=== PATIENT | female | born 1940 | race Caucasian/White ===

== ENCOUNTER → 2017-10-17 16:34 | Outpatient (CLI) | payer MEDICARE, BC, SELFPAY | PROVIDERS: PCP Family Medicine; Visit Provider Family Medicine | DX: R82.99 Other abnormal findings in urine (principal) | CPT/HCPCS: 87077; 87086; 87186 ==

== ENCOUNTER 2017-10-20 19:06 | Emergency (ER) | payer MEDICARE, BC, SELFPAY ==
[2017-10-20 19:12] VITALS: BP 166/72; PULSE 107; RESP 18; TEMP 36.7; O2SAT 99; BMI 22.1
--- NOTE | 2017-10-20 20:21 | ED.FEMALEGU ---
HPI - Female Genitourinary <Dafne Velásquez PA-C - Last Filed: 10/20/17 22:41> General Chief complaint: Urogenital-Female Stated complaint: LEFT SIDE LOWER PAIN HAD AN UTI Time Seen by Provider: 10/20/17 20:22 Source: patient Mode of arrival: ambulatory Limitations: no limitations History of Present Illness HPI Narrative: This 77 year year old female comes in today due to persistent urinary symptoms and increasing left flank pain. She states that she was started on Macrobid 3 days ago for UTI, however she continues to have urinary urgency and increasing left flank pain. She says the pain has been worsening mostly today. She was having dysuria which is better. She has not had any hematuria. She is not having worsening urinary frequency today. She denies any fever, chills, sweats, nausea or vomiting and has been going about her activities. She denies any new trauma to the trunk or ribs. She denies any anorexia. She denies any chest pain, dyspnea or other new symptoms on systems review Related Data Home Medications Medication Instructions Recorded Confirmed sodium chloride 2 gm PO QDAY #0 05/15/16 VITAMIN D (Vitamin D3) 2,000 u PO Q AM #0 09/03/16 Previous Rx's Medication Instructions Recorded amlodipine [Norvasc] 5 mg PO QDAY #30 tab 06/18/17 irbesartan 300 mg PO QDAY #90 tab 07/29/17 amitriptyline 10 mg PO QPM #30 tab 09/08/17 lorazepam 0.5 mg tablet 0.25 mg PO BID #60 tab 09/29/17 levofloxacin [Levaquin] 500 mg PO DAILY 7 Days tab 10/20/17 Allergies Allergy/AdvReac Type Severity Reaction Status Date / Time No Known Allergies Allergy Uncoded 10/20/17 19:17 Review of Systems <Dafne Velásquez PA-C - Last Filed: 10/20/17 22:41> Review of Systems All systems reviewed & are unremarkable except as noted in HPI and below Exam <Dafne Velásquez PA-C - Last Filed: 10/20/17 22:41> Narrative Exam Narrative: GENERAL APPEARANCE: Patient sitting comfortably, appears well, in no distress. LUNGS: Clear to auscultation bilaterally. HEART: Rate and rhythm regular without murmur, normal S1 and S2, no S3 or S4. ABDOMEN: Soft, ND, +BS x 4 quadrants, no CVAT. She has some mild left CVAT posterior to lateral that is difficult to reproduce. No tenderness elsewhere. No guarding or rebound DERMATOLOGIC: No exanthem Initial Vital Signs Initial Vital Signs: Vital Signs Temperature 98.1 F 10/20/17 19:12 Pulse Rate 107 H 10/20/17 19:12 Respiratory Rate 18 10/20/17 19:12 Blood Pressure 166/72 H 10/20/17 19:12 Pulse Oximetry 99 10/20/17 19:12 <Arron Estrada DO - Last Filed: 10/21/17 02:27> Initial Vital Signs Initial Vital Signs: Vital Signs Temperature 98.1 F 10/20/17 19:12 Pulse Rate 107 H 10/20/17 19:12 Respiratory Rate 18 10/20/17 19:12 Blood Pressure 166/72 H 10/20/17 19:12 Pulse Oximetry 99 10/20/17 19:12 Course <Dafne Velásquez PA-C - Last Filed: 10/20/17 22:41> Hospital Course: This patient appears basically well today. She has a little bit of left leg pain that is difficult to reproduce, in the setting of known urinary infection. She states that this was present a few days ago but very mild, worse today. She has persistent urinary urgency as well. Explained that she did have E coli that was pansensitive however may not treat she does have pyelonephritis. We gave her a dose of Levaquin tonight and she will continue this as an outpatient tomorrow. Advised of need to follow up if any acutely worsening symptoms, and to see PCP for follow-up in a couple of days regardless, and she is agreeable Orders Ordered: ED Orders 10/20/17 19:24 Urine Culture Stat Urine Microscopic Stat Discontinued Medications Levofloxacin (Levaquin) 500 mg PO NOW ONE Stop: 10/20/17 20:44 Last Admin: 10/20/17 20:51 Dose: 500 mg Vital Signs - 8 hr 10/20/17 19:12 10/20/17 21:46 Temperature 98.1 F Pulse Rate 107 H 83 Respiratory Rate 18 18 Blood Pressure 166/72 H 145/81 H Pulse Oximetry 99 98 <Arron Estrada DO - Last Filed: 10/21/17 02:27> Orders Ordered: ED Orders 10/20/17 19:24 Urine Culture Stat Urine Microscopic Stat Discontinued Medications Levofloxacin (Levaquin) 500 mg PO NOW ONE Stop: 10/20/17 20:44 Last Admin: 10/20/17 20:51 Dose: 500 mg Vital Signs - 8 hr 10/20/17 19:12 10/20/17 21:46 Temperature 98.1 F Pulse Rate 107 H 83 Respiratory Rate 18 18 Blood Pressure 166/72 H 145/81 H Pulse Oximetry 99 98 MDM - Female Genitourinary <Dafne Velásquez PA-C - Last Filed: 10/20/17 22:41> Lab Data Attestation: I reviewed the patient's lab results. Lab Results 10/20/17 Range/Units 19:24 Urine RBC None seen (0-5/HPF) Urine WBC 1-5/hpf (0-5/HPF) Urine Bacteria None seen (None) Ur Culture Indicated? Specimen cultured Micro UA Comment Not Reportable <Arron Estrada DO - Last Filed: 10/21/17 02:27> Lab Data Lab Results 10/20/17 Range/Units 19:24 Urine RBC None seen (0-5/HPF) Urine WBC 1-5/hpf (0-5/HPF) Urine Bacteria None seen (None) Ur Culture Indicated? Specimen cultured Micro UA Comment Not Reportable Discharge Plan Departure Patient Disposition: Home, Self-Care Clinical Impression: Infection of kidney Discharge Date/Time: 10/20/17 21:46 Interventions: ED Discharge Assessment Last Done: 10/20/17 21:46 Instructions: DI for Kidney Infection Activity Restrictions/Additional Instructions: You should return to the closest emergency room as we talked about if you have new symptoms such as vomiting, fever, or worsening pain. Given your recent symptoms, it appeared that you may have a kidney infection and may need a different antibiotic than you were 1st prescribed. You should stop the Macrobid (Nitrofurantoin) and take your next dose of the new antibiotic Levaquin or levofloxacin tomorrow evening. You should follow up with your PCP in the next couple of days for recheck. You need further testing if you are not getting better. Prescriptions: New levofloxacin [Levaquin] 500 mg tablet 500 mg PO DAILY 7 Days RF: 0 Discontinued nitrofurantoin macrocrystal [Macrodantin] 100 MG capsule 100 mg PO QID Qty: 20 RF: 0 nitrofurantoin monohyd/m-cryst [Macrobid] 100 MG capsule 100 mg PO BID Qty: 4 RF: 0 nitrofurantoin monohyd/m-cryst [Macrobid] 100 mg capsule 100 mg PO BID Qty: 20 RF: 0 No Action sodium chloride 1 GM tablet 2 gm PO QDAY Qty: 0 RF: 0 VITAMIN D (Vitamin D3) 2,000 u PO Q AM Qty: 0 RF: 0 amlodipine [Norvasc] 5 MG tablet 5 mg PO QDAY Qty: 30 RF: 4 irbesartan 300 MG tablet 300 mg PO QDAY Qty: 90 RF: 1 amitriptyline 10 MG tablet 10 mg PO QPM Qty: 30 RF: 1 lorazepam 0.5 mg tablet 0.25 mg PO BID Qty: 60 RF: 0 Referrals: Temi Antoine MD [Primary Care Provider] - <Arron Estrada DO - Last Filed: 10/21/17 02:27> Cosign ED Attending Cosignature Attestation: I was immediately available in the department for consultation. Documentation has been reviewed. I agree with assessment and plan.
[2017-10-20 20:38] LABS: Bacteria Urine None Seen; RBC Urine None Seen (0-5/HPF); WBC Urine 1-5/HPF (0-5/HPF)
[2017-10-20 20:39] LABS: Culture Indicated Urine Specimen Cultured
[2017-10-20] MEDS: levoFLOXacin 500 MG TABLET PO (20:51)
[2017-10-20 21:46] VITALS: BP 145/81; PULSE 83; RESP 18; O2SAT 98
== END 2017-10-20 21:46 | disposition home or self-care (01) ==
PROVIDERS: Emergency Provider Internal Medicine; PCP Family Medicine
DX: N15.9 Renal tubulo-interstitial disease, unspecified (principal)
CPT/HCPCS: 81003; 81015; 87086; 99282; 99283

== ENCOUNTER → 2017-11-28 11:54 | Outpatient (CLI) | payer MEDICARE, BC, SELFPAY ==
--- NOTE | 2017-11-28 11:58 | DI.CT.S_ITS ---
PROCEDURE: CT CHEST WO CON INDICATIONS: Pulmonary nodule TECHNIQUE: Noncontrast 2.0-2.5 mm thick sections acquired from the pulmonary apices to the posterior costophrenic angles. 7 mm thick coronal and sagittal MIP reformats were then acquired. A low radiation dose technique was utilized. COMPARISON: [facility], CT, THORAX WITH CONTRAST, 07/08/2016, 9:35. [facility], [place], PET NECK TO MID THIGH STD, 04/24/2016, 8:34. [facility], , CT THORAX WITH CONTRAST, 04/10/2016, 16:58. FINDINGS: Image quality: Diagnostic, given the low radiation dose technique. Lungs and pleura: Previously visualized groundglass nodule seen in the left lower lobe has increased in size since 07/08/16 measuring 1.8 cm, previously measuring 1.1 cm. There is ill-defined multinodular appearance which is more conspicuous since the prior study, with increased solid appearing component image 81 series 2. Upper lobe predominant centrilobular emphysema. No acute consolidation or pleural effusion. No pneumothorax. The central airways appear grossly patent. Mediastinum: Heart size is normal. Coronary calcifications are present. No pericardial effusion. No mediastinal adenopathy by size criteria. Thoracic aorta and central pulmonary arteries are normal in size. Esophagus is normal in caliber. No hiatal hernia. Bones and chest wall: No suspicious bony lesions. No vertebral body compression fractures. No axillary or supraclavicular adenopathy by size criteria. Low attenuation nodular focus present in the left lobe of the thyroid measuring 1 cm, image 3 series 3. Recommend followup with dedicated thyroid ultrasound. Abdomen: Nonspecific hypodense lesions seen in the subcapsular left lobe the liver image 55 series 3 which is indeterminate however grossly unchanged. IMPRESSION: Interval increase in the nodular lesion in the left lower lobe since 07/08/16, now with mixed solid and groundglass appearance. Findings are concerning for indolent neoplasm such as adenocarcinoma. Consider percutaneous needle biopsy for further evaluation. Fleischner Society criteria for SOLID lung nodule followup. Nodule size (mm)Low-risk patientHigh-risk patient<6 (single or multiple)No routine followup.Optional CT at 12 months. 6-8 (single or multiple)CT at 6-12 months, then optional CT at 18-24 mo.CT at 6-12 months, then CT at 18-24 months. >8 (single)CT at 3 months, PET-CT, or biopsy. Same as for low-risk pts. >8 (multiple)CT at 3-6 months, then optional CT at 18-24 mo.CT at 3-6 months, then CT at 18-24 months. Fleischner Society criteria for SUB-SOLID lung nodule followup. Solitary pure ground-glass nodules<6 mm (ground glass or part solid)No followup needed. 6 mm or larger (ground glass)CT at 6-12 months to confirm persistence, then CT every 2 years until 5 years.6 mm or larger (part solid)CT at 3-6 months to confirm persistence, then annual CT until 5 years if unchanged and solid component remains <6 mm. Multiple sub-solid nodules<6 mmCT at 3-6 months, then CT consider at 2 & 4 years for high risk patients. [address] at 3-6 months. Subsequent management based on most suspicious lesions. Recommendations do not apply to lung cancer screening, patients with immunosuppression, or patients with known primary cancer. Dictated by: Luca Cobb M.D. on 11/28/2017 at 13:14 Approved by: Luca Cobb M.D. on 11/28/2017 at 13:29
[2017-11-28 16:20] VITALS: BP 94/58; PULSE 16; RESP 16; TEMP 35.7; O2SAT 91
[2017-11-28 16:53] VITALS: BP 94/51; PULSE 63; RESP 16; TEMP 35.8; O2SAT 97
[2017-11-28 17:20] VITALS: BP 98/52; PULSE 61; RESP 16; TEMP 35.9; O2SAT 97
[2017-11-28 18:20] VITALS: BP 91/55; PULSE 62; RESP 16; O2SAT 99
[2017-11-28 19:33] VITALS: BP 96/56; PULSE 65; RESP 16; TEMP 36.3; O2SAT 99
== END ==
PROVIDERS: PCP Family Medicine; Visit Provider Family Medicine
DX: R91.1 Solitary pulmonary nodule (principal); E87.1 Hypo-osmolality and hyponatremia; J43.9 Emphysema, unspecified; I25.10 Atherosclerotic heart disease of native coronary artery without angina pectoris
CPT/HCPCS: 71250

== ENCOUNTER → 2017-12-02 07:55 | Outpatient (CLI) | payer MEDICARE, BC, SELFPAY ==
[2017-12-02 08:55] LABS: Mean Corpuscular HGB Conc 34.1 % (30-36); Mean Corpuscular Hemoglobin 31.9 PG (26-34); Mean Corpuscular Volume 93.4 fL (80-100); Platelet Count 380 X10^3/uL (150-400); Red Blood Cell Count 4.39 X10^6/uL (4.0-5.2); Red Cell Distribution Width 12.6 % (11.6-14.8); White Blood Cell Count 8.9 X10^3/uL (4.5-11.0)
[2017-12-02 09:15] LABS: Alanine Aminotransferase 26 IU/L (9-52); Albumin 4.3 g/dL (3.5-5.0); Albumin Globulin Ratio 1.5 (1.0-2.8); Alkaline Phosphatase 102 U/L (38-126); Aspartate Aminotransferase 22 IU/L (14-36); BUN Creatinine Ratio 12.5 (6-22); Bilirubin Total 0.6 mg/dL (0.2-1.3); Blood Urea Nitrogen 10 mg/dL (7-17); Calcium 9.4 mg/dL (8.4-10.2); Carbon Dioxide 30 mmol/L (22-32); Chloride 98 mmol/L (98-107); Cholesterol 146 mg/dL (140-199); Estimated Glomerular Filt Rate > 60.0 mL/min (>60); Globulin 2.8 g/dL (1.7-4.1); Glucose 102 mg/dL (80-110); HDL Cholesterol 65 mg/dL (40-60); HEMOLYSIS < 15 (0-50); LDL Cholesterol Calculated 65 mg/dL (<100); Potassium 4.1 mmol/L (3.4-5.1); Sodium 139 mmol/L (137-145); Total Protein 7.1 g/dL (6.3-8.2); Triglycerides 82 mg/dL (35-150)
[2017-12-02 09:24] LABS: B Type Natriuretic Peptide < 100.0 (<100)
[2017-12-02 09:28] LABS: Sodium Urine Random 140 mmol/L (30-90)
[2017-12-02 09:34] LABS: Cortisol AM (Before 10AM) 9.62 ug/dL (4.46-22.7)
[2017-12-02 09:37] LABS: Neutrophils Absolute Manual 7209 /uL (3000-5900); RBC Morphology Normal Morphology; Total Cells Counted 100
[2017-12-02 09:59] LABS: TSH w/ Reflex to FT4 1.19 uIU/mL (0.47-4.68)
[2017-12-04 15:00] LABS: Osmolality Urine 426 mosm/kg (220-1300); Osmolality, Serum 285 mosm/kg (260-310)
== END ==
PROVIDERS: PCP Family Medicine; Visit Provider Family Medicine
DX: R91.1 Solitary pulmonary nodule (principal); E87.1 Hypo-osmolality and hyponatremia
CPT/HCPCS: 36415; 80053; 80061; 82533; 83880; 83930; 83935; 84300; 84443; 85025

== ENCOUNTER → 2017-12-06 10:50 | Outpatient (CLI) | payer MEDICARE, BC, SELFPAY ==
[2017-12-06 12:10] LABS: INR 1.1 (0.9-1.3); Prothrombin Time 11.6 SECONDS (10.1-12.7)
[2017-12-06 12:34] LABS: Platelet Count 366 X10^3/uL (150-400)
== END ==
PROVIDERS: PCP Family Medicine; Visit Provider Family Medicine
DX: R91.8 Other nonspecific abnormal finding of lung field (principal)
CPT/HCPCS: 85049; 85610

== ENCOUNTER 2017-12-11 07:07 | Day surgery (SDC) | payer MEDICARE, BC, SELFPAY ==
[2017-12-11 08:06] VITALS: BP 150/76; PULSE 81; RESP 20; TEMP 36.4; O2SAT 100; BMI 23.4
[2017-12-11 09:50] VITALS: BP 138/76; PULSE 91; RESP 15; TEMP 36.5; O2SAT 99
--- NOTE | 2017-12-11 10:13 | SUR.PHASEII ---
pt to opd from radiology at 0950, vss, per dereck quintanilla internet sales representative was not perfromed , no meds were given , patient ready to be discharged , no co's
--- NOTE | 2017-12-11 10:14 | DI.CT.S_ITS ---
PROCEDURE: CT CHEST WO CON INDICATIONS: biopsy mass in left lung increased in size TECHNIQUE: Noncontrast 5 mm thick sections acquired from the pulmonary apices to the posterior costophrenic angles. 7 mm thick coronal and sagittal MIP reformats were then acquired. For radiation dose reduction, the following was used: automated exposure control, adjustment of mA and/or kV according to patient size. COMPARISON: [facility], CT, CT CHEST WO CON, 11/28/2017, 11:52. FINDINGS: Image quality: Excellent. Lungs and pleura: Examination was performed for scheduled percutaneous needle biopsy of the triangular-shaped peripheral nodule in the left lower lobe with patient in prone position, images were obtained with varying degrees of breath-hold but the target lesion could not be cleared from overlying rib. The lesion was initially found on CT chest of 04/10/2016 and measured 9 x 14 mm. On subsequent PET imaging on 04/24/2016, the 8 x 12 mm nodule demonstrated low tracer uptake suggesting benign etiology. On followup CT of 07/08/2016, the lesion remained stable at 9 x [address] of 11/28/2017, the lesion appeared larger measuring 9 x 18 mm with 2 or 3 more solid appearing components. On current exam, the solid components are not evident and the lesion measures 12 x 16 mm. IMPRESSION: Unsuccessful attempt at percutaneous needle biopsy of the left lower lobe triangular shaped pulmonary nodule secondary to location and size of the nodule. This was explained to the patient prior to discharge. No intravenous medications were delivered and no needle penetration was performed. A repeat PET/CT exam might be considered although adenocarcinoma in situ could still not be excluded by that exam. Followup noncontrast CT chest in 3-6 months is recommended. Alternatively, a surgical wedge resection could be considered. Dictated by: Narendra Salmon M.D. on 12/11/2017 at 11:47 Approved by: Narendra Salmon M.D. on 12/11/2017 at 12:02
--- NOTE | 2017-12-11 10:15 | SUR.PHASEII ---
[address] negrete that pt was to be discharged , procedure unable to be performed
--- NOTE | 2017-12-11 10:16 | SUR.PHASEII ---
1005 pt dressed and ready to go, steady on feet , to waiting room to wait for no co's
--- NOTE | 2017-12-11 10:20 | SUR.PHASEII ---
dr negrete signed off on discharge papers not in the computer
== END 2017-12-11 10:07 ==
PROVIDERS: PCP Family Medicine; Visit Provider Family Medicine
PROC: BB24ZZZ Computerized Tomography (CT Scan) of Bilateral Lungs (ICD-10-PCS; CPT 32408; principal; 2017-12-11 09:00)
DX: R91.1 Solitary pulmonary nodule (principal); R91.8 Other nonspecific abnormal finding of lung field
CPT/HCPCS: 71250

== ENCOUNTER → 2018-01-15 08:00 | Oncology outpatient (ONC) | payer MEDICARE, BC, SELFPAY ==
[2018-01-15] MEDS: COSYNTROPIN 0.25 MG VIAL IV (08:52)
== END ==
PROVIDERS: PCP Family Medicine; Visit Provider Family Medicine
DX: E87.1 Hypo-osmolality and hyponatremia (principal)
CPT/HCPCS: 82533; 96374; J0834

== ENCOUNTER → 2019-06-14 09:30 | Outpatient (CLI) | payer MEDICARE, BC, SELFPAY ==
--- NOTE | 2019-06-14 09:32 | DI.CT.S_ITS ---
PROCEDURE: CT CHEST WO CON INDICATIONS: lung nodule fu TECHNIQUE: Noncontrast 5 mm thick sections acquired from the pulmonary apices to the posterior costophrenic angles. 1 mm lung window, 5 mm thick coronal and sagittal and 7 mm axial MIP reformats were then acquired. For radiation dose reduction, the following was used: automated exposure control, adjustment of mA and/or kV according to patient size. COMPARISON: [facility], [place], PET NECK TO MID THIGH STD, 04/24/2016, 8:34. [facility], CT, THORAX WITH CONTRAST, 07/08/2016, 9:35. [facility], CT, CT CHEST WO CON, 12/11/2017, 8:46. [facility], CT, CT CHEST WO CON, 11/28/2017, 11:52. FINDINGS: Image quality: Excellent. Lungs and pleura: No acute air space opacities. A triangular focal radiodensity is combined solid and subsolid is again seen at the left lower lobe, peripherally. This has been associated with mild thickening of the major fissure extending inferiorly, to the diaphragmatic level. No pleural effusions or pneumothorax. Central and peripheral airways are patent and normal in caliber. Mediastinum: Heart size is normal. No pericardial effusion. No mediastinal adenopathy by size criteria. Thoracic aorta and central pulmonary arteries are normal in size. Esophagus is normal in caliber. No hiatal hernia. Bones and chest wall: No suspicious bony lesions. No vertebral body compression fractures. No axillary or supraclavicular adenopathy by size criteria. Thyroid gland is not well-seen by this noncontrast technique. Abdomen: Visualized upper abdominal solid organs and bowel loops appear normal in the absence of contrast. IMPRESSION: The left lower lobe radiodensity that has been followed by PET/CT and CT scanning both without and with contrast from 04/24/16 the current examination has shown a small degree of interval change control specialist time, initially being a region of alveolar infiltration and then developing a small amount of solid nodularity. Over time, also, there has been associated mild thickening of the major fissure extending inferiorly. This remains of uncertain etiology, and could represent a manifestation of low-grade active granulomatous disease but low-grade neoplasm remains a potential etiology. A CT guided biopsy attempt was made 12/11/17 without success. A thoracoscopic biopsy is a potential alternative technology for obtaining diagnostic sampling. Dictated by: Wolf Beltran M.D. on 06/14/2019 at 10:57 Approved by: Wolf Beltran M.D. on 06/14/2019 at 11:09
[2019-06-14 10:20] LABS: Add Manual Diff / Slide Review NO; Basophils Absolute Auto 0 /uL (0-100); Basophils Percent Auto 0.6 % (0-2); Eosinophils Absolute Auto 100 /uL (0-450); Eosinophils Percent Auto 0.7 % (2-4); Hematocrit 41.4 % (36-46); Hemoglobin 14.2 g/dL (12.0-16.0); Lymphocytes Absolute Auto 1400 /uL (1100-4500); Lymphocytes Percent Auto 18.1 % (25-40); Mean Corpuscular HGB Conc 34.2 % (30-36); Mean Corpuscular Hemoglobin 31.7 PG (26-34); Mean Corpuscular Volume 92.6 fL (80-100); Monocytes Absolute Auto 400 /uL (0-900); Monocytes Percent Auto 5.7 % (3-14); Neutrophils Absolute Auto 5700 /uL (1500-7000); Neutrophils Percent Auto 74.9 % (50-75); Platelet Count 344 X10^3/uL (150-400); Red Blood Cell Count 4.47 X10^6/uL (4.0-5.2); Red Cell Distribution Width 12.8 % (11.6-14.8); White Blood Cell Count 7.6 X10^3/uL (4.5-11.0)
[2019-06-14 10:33] LABS: Alanine Aminotransferase 17 IU/L (<35); Albumin 4.4 g/dL (3.5-5.0); Albumin Globulin Ratio 1.3 (1.0-2.8); Alkaline Phosphatase 106 U/L (38-126); Aspartate Aminotransferase 27 IU/L (14-36); BUN Creatinine Ratio 13.8 (6-22); Bilirubin Total 0.6 mg/dL (0.2-1.3); Blood Urea Nitrogen 11 mg/dL (7-17); Calcium 9.8 mg/dL (8.4-10.2); Carbon Dioxide 29 mmol/L (22-32); Chloride 98 mmol/L (98-107); Cholesterol 163 mg/dL (140-199); Estimated Glomerular Filt Rate > 60.0 mL/min (>60); Globulin 3.4 g/dL (1.7-4.1); Glucose 120 mg/dL (80-110); HDL Cholesterol 58 mg/dL (40-60); HEMOLYSIS < 15 (0-50); LDL Cholesterol Calculated 91 mg/dL (<100); Potassium 4.9 mmol/L (3.4-5.1); Sodium 135 mmol/L (137-145); Total Protein 7.8 g/dL (6.3-8.2); Triglycerides 71 mg/dL (35-150)
== END ==
PROVIDERS: PCP Family Medicine; Visit Provider Family Medicine
DX: R91.1 Solitary pulmonary nodule (principal)
CPT/HCPCS: 36415; 71250; 80053; 80061; 84443; 85025

== ENCOUNTER → 2021-10-10 12:42 | Outpatient (CLI) | payer MEDICARE, BC, SELFPAY ==
[2021-10-10 14:17] LABS: Add Manual Diff / Slide Review NO; Alanine Aminotransferase 15 IU/L (<35); Albumin 4.4 g/dL (3.5-5.0); Albumin Globulin Ratio 1.5 (1.0-2.8); Alkaline Phosphatase 105 U/L (38-126); Aspartate Aminotransferase 24 IU/L (14-36); BUN Creatinine Ratio 11.4 (6-22); Basophils Absolute Auto 0 /uL (0-100); Basophils Percent Auto 0.4 % (0-2); Bilirubin Total 0.5 mg/dL (0.2-1.3); Blood Urea Nitrogen 8 mg/dL (7-17); Calcium 9.3 mg/dL (8.4-10.2); Carbon Dioxide 28 mmol/L (22-32); Chloride 94 mmol/L (98-107); Eosinophils Absolute Auto 0 /uL (0-450); Eosinophils Percent Auto 0.3 % (2-4); Estimated Glomerular Filt Rate > 60 mL/min (>60); Glucose 98 mg/dL (80-110); HEMOLYSIS < 15 (0-50); Hematocrit 40.4 % (36-46); Hemoglobin 14.3 g/dL (12.0-16.0); Lymphocytes Absolute Auto 1800 /uL (1100-4500); Lymphocytes Percent Auto 18.2 % (25-40); Mean Corpuscular HGB Conc 35.5 % (30-36); Mean Corpuscular Hemoglobin 32.6 PG (26-34); Mean Corpuscular Volume 91.8 fL (80-100); Monocytes Absolute Auto 600 /uL (0-900); Monocytes Percent Auto 6.6 % (3-14); Neutrophils Absolute Auto 7200 /uL (1500-7000); Neutrophils Percent Auto 74.5 % (50-75); Platelet Count 398 X10^3/uL (150-400); Potassium 4.3 mmol/L (3.4-5.1); Red Cell Distribution Width 12.6 % (11.6-14.8); Sodium 130 mmol/L (137-145); Total Protein 7.4 g/dL (6.3-8.2); White Blood Cell Count 9.7 X10^3/uL (4.5-11.0)
[2021-10-10 15:03] LABS: Vitamin B12 > 1000 pg/mL (239-931)
[2021-10-10 15:33] LABS: Microalbumin Urine Random 0.7 mg/dL (0-1.6)
== END ==
PROVIDERS: PCP Family Medicine; Referring Provider Physician Assistant; Visit Provider Physician Assistant
DX: I10 Essential (primary) hypertension (principal); E87.1 Hypo-osmolality and hyponatremia; R53.83 Other fatigue
CPT/HCPCS: 36415; 80053; 82043; 82570; 82607; 84443; 85025

== ENCOUNTER → 2021-12-14 11:02 | Outpatient (CLI) | payer MEDICARE, BC, SELFPAY | PROVIDERS: PCP Family Medicine; Visit Provider Nurse Practitioner Family | DX: N39.0 Urinary tract infection, site not specified (principal) | CPT/HCPCS: 87077; 87086; 87185; 87186 ==

== ENCOUNTER → 2022-12-27 14:16 | Outpatient (CLI) | payer MEDICARE, BC, SELFPAY | PROVIDERS: PCP Family Medicine; Visit Provider Nurse Practitioner Family | DX: R30.0 Dysuria (principal) | CPT/HCPCS: 87077; 87086; 87147; 87210 ==

== ENCOUNTER 2022-12-28 11:26 | Emergency (ER) | payer MEDICARE, BC, SELFPAY ==
[2022-12-28 11:30] VITALS: BP 188/86; PULSE 88; RESP 18; TEMP 37.1; O2SAT 99; BMI 21.4
--- NOTE | 2022-12-28 15:21 | ED_ITS ---
HPI - Female Genitourinary General Chief complaint: Urogenital-Female Stated complaint: possible prolapsed bladder Time Seen by Provider: 12/28/22 15:19 Source: patient Mode of arrival: Ambulatory Limitations: no limitations History of Present Illness HPI Narrative: This is a 82-year-old female with history of hypertension, recurrent UTI, who states she was having some urinary issues had a little bit of difficulty with urination yesterday which improved. She noticed in the last that her bladder feels like it is hanging down or outside the vaginal opening. She states it gets better when she lays down or sits down. She states it is a little bit uncomfortable but not painful. No fevers or chills. No nausea or vomiting. No abdominal back or flank pain. She is had normal bowel movements no constipation. She states other than the 1 time was little bit difficult to urinate she has not had any retention. Patient states she does sometimes get frequent UTIs. She has noted pressure in the vaginal area but thought those were bladder infections. Patient states it is a 1st time she is noticed it. She is able to push it back up inside. She states she has had a prior complete hysterectomy in the past. Allergic to sulfa. Dr. Deal is her primary care. She does not follow regularly with an OBGYN. Related Data Home Medications Medication Instructions Recorded Confirmed sodium chloride 1 gram tablet 2 gm PO BID ##0 05/15/16 10/10/21 VITAMIN D (Vitamin D3) 2,000 u PO Q AM ##0 09/03/16 10/10/21 cranberry extract-multivitamin 500 mg PO 12/23/17 10/10/21 mg/5 gram oral powder packet Previous Rx's Medication Instructions Recorded triamcinolone acetonide 0.1 % See Rx Instructions topical BID 07/17/20 topical cream #454 grams fluconazole 100 mg tablet 100 mg PO Q OTHER DAY #5 tabs 07/25/20 (Diflucan) phenazopyridine 200 mg tablet 200 mg PO TID 6 doses #6 tabs 12/14/21 (Pyridium) lorazepam 0.5 mg tablet 0.25 mg PO BID PRN anxiety #60 tabs 08/06/22 irbesartan 300 mg tablet See Rx Instructions .Route 12/13/22 .COMPLEX #30 tabs amitriptyline 10 mg tablet 10 mg PO ONCE PM #30 tabs 12/16/22 amlodipine 5 mg tablet 5 mg PO DAILY #30 tabs 12/16/22 estradiol 0.01% (0.1 mg/gram) 1 g vaginal 2XW #42.5 grams 12/16/22 vaginal cream nitrofurantoin 100 mg PO Q12H 7 days #14 caps 12/27/22 monohydrate/macrocrystals 100 mg capsule (Macrobid) Allergies Allergy/AdvReac Type Severity Reaction Status Date / Time Sulfa (Sulfonamide Allergy Mild Rash Verified 12/27/22 13:51 Antibiotics) Review of Systems Review of Systems ROS Unobtainable: All systems reviewed & are unremarkable except as noted in HPI and below Patient History Medical History Abnormal CXR (~2015) Chicken pox Fibroids (~1992) Gastric ulcer (~10/2016) Heavy menstrual period (~1992) Hiatal hernia HTN (hypertension) Hyponatremia Surgical History Anesthesia History of esophagogastroduodenoscopy (EGD) (11/12/16) Status post hysterectomy (~1990) Family History Father Hypertension Stroke Mother Cancer alcohol intake frequency: 0-2 drinks per day Substance Use Type: does not use Exam Narrative Exam Narrative: GENERAL: Alert and oriented x three, well-appearing elderly female in mild distress. HEENT: Head normocephalic, atraumatic, EOMI, pupils reactive, face symmetric, moist mucous membranes NECK: Supple, full range of motion CARDIOVASCULAR: Regular rate and rhythm without murmurs, rubs or gallops. RESPIRATORY: Breath sounds equal bilaterally, no wheezes rales or rhonchi. ABDOMEN: Soft, nontender. Normoactive bowel sounds all 4 quadrants. No guarding or rebound, rigidity, no mass : No CVA tenderness. Female: external vaginal examl normal, no vaginal ble eding, small amount of thin white discharge, normal speculum exam other than patient does appear to have cystocele with the anterior vaginal wall bulging down words on initial visual exam. Patient does not have any external protrusion examination, no adnexal tenderness/mass. Bimanual exam is normal otherwise, no enlarged or tender uterus. Non-gravid. EXTREMITIES: Normal range of motion, no clubbing or edema. Neurovascularly intact NEUROLOGICAL: Cranial nerves II through XII grossly intact. Moving all extremities SKIN: Warm, dry, no petechiae, no rashes or lesions. Initial Vital Signs Initial Vital Signs: Vital Signs Temperature 98.7 F 12/28/22 11:30 Pulse Rate 88 12/28/22 11:30 Respiratory Rate 18 12/28/22 11:30 Blood Pressure 188/86 H 12/28/22 11:30 Pulse Oximetry 99 12/28/22 11:30 Oxygen Delivery Method Room Air 12/28/22 11:30 Course Orders Ordered: ED Orders 12/28/22 15:33 Genital Culture Stat Wet Prep Tric BV Yanci Stat Vital Signs Vital signs: Vital Signs - 8 hr 12/28/22 11:30 12/28/22 16:19 Temperature 98.7 F Pulse Rate 88 89 Respiratory Rate 18 18 Blood Pressure 188/86 H 173/76 H Pulse Oximetry 99 99 Oxygen Delivery Method Room Air Room Air MDM - Female Genitourinary MDM Narrative Medical decision making narrative: This is an 82-year-old female who appears to have little bit of bladder prolapse or cystocele. Reviewed with patient what she is feeling is actually the wall vaginal canal discussed with patient need for follow-up, he is not having persistent urinary symptoms. She did have UTI appears on her urinalysis yesterday and is currently taking oral antibiotic. Recommended follow up with Gynecology for evaluation for pessary versus bladder sling as she finds this quite distressing. Red flag symptoms currently. No changes to the wall, masses or bleeding. Patient did have genital culture and wet prep obtained as she does have some discharge. Patient is comfortable waiting for results. Discharge Plan Departure Patient Disposition: Home Clinical Impression: Cystocele Instructions: Cystocele/Rectocele Activity Restrictions/Additional Instructions: Follow-up with gynecology for evaluation, call Friday morning for an appointment. You appear to have a cystocele on examination. The tnt line supervisor will perform their own independent examination, and evaluate to see if you are a candidate for pessary versus surgical intervention. If the area protrudes you can push it back up with your hand. Wash your hands before and after. Avoid high impact activities but you can still participate in normal activities. Please return for fevers no abdominal pain, if you are having difficulty or in ability to urinate, if you are having bleeding, difficulty with bowel movements, nausea or vomiting or other new or concerning changes. Prescriptions: No Action triamcinolone acetonide 0.1 % cream See Rx Instructions topical BID Qty: 454 0RF Rx Instructions: 1 mg topically bid TOP BID phenazopyridine [Pyridium] 200 mg tablet 200 mg PO TID 0 Days Qty: 6 0RF nitrofurantoin monohyd/m-cryst [Macrobid] 100 mg capsule 100 mg PO Q12H 7 Days Qty: 14 0RF Rx Instructions: must administer with a meal/food sodium chloride 1 GM tablet 2 gm PO BID Qty: 0 VITAMIN D (Vitamin D3) 2,000 u PO Q AM Qty: 0 fluconazole [Diflucan] 100 mg tablet 100 mg PO Q OTHER DAY Qty: 5 0RF lorazepam 0.5 mg tablet 0.25 mg PO BID PRN (Reason: anxiety) Qty: 60 2RF irbesartan 300 mg tablet See Rx Instructions .ROUTE .COMPLEX Qty: 30 0RF Dose Instruction: take 1 tablet by mouth daily Rx Instructions: take 1 tablet by mouth daily amitriptyline 10 mg tablet 10 mg PO ONCE PM Qty: 30 5RF amlodipine 5 mg tablet 5 mg PO DAILY Qty: 30 5RF estradiol 0.01 % (0.1 mg/gram) cream 1 g vaginal 2XW Qty: 42.5 0RF cranberry extract-multivitamin 500 mg/5 gram powder in packet PO Referrals: Cristin Guevara MD [Physician] - Parag Deal MD [Primary Care Provider] - Stand Alone Forms: Patient Portal/API
[2022-12-28 16:19] VITALS: BP 173/76; PULSE 89; RESP 18; O2SAT 99
== END 2022-12-28 16:11 | disposition home or self-care (01) ==
PROVIDERS: Emergency Provider Emergency Medicine; PCP Family Medicine
DX: N81.10 Cystocele, unspecified (principal)
CPT/HCPCS: 87070; 87077; 87147; 87205; 87210; 99281; 99283

== ENCOUNTER → 2023-01-10 15:46 | Outpatient (CLI) | payer MEDICARE, BC, SELFPAY | PROVIDERS: PCP Family Medicine; Visit Provider Obstetrics & Gynecology | DX: N39.0 Urinary tract infection, site not specified (principal) | CPT/HCPCS: 87077; 87086; 87185; 87186 ==

== ENCOUNTER → 2023-01-29 12:01 | Outpatient (CLI) | payer MEDICARE, BC, SELFPAY ==
[2023-01-29 13:13] LABS: Alanine Aminotransferase 22 IU/L (<35); Albumin 4.2 g/dL (3.5-5.0); Albumin Globulin Ratio 1.3 (1.0-2.8); Alkaline Phosphatase 124 U/L (38-126); Aspartate Aminotransferase 28 IU/L (14-36); BUN Creatinine Ratio 10.5 (6-22); Bilirubin Total 0.6 mg/dL (0.2-1.3); Blood Urea Nitrogen 6 mg/dL (7-17); Calcium 8.8 mg/dL (8.4-10.2); Carbon Dioxide 27 mmol/L (22-32); Chloride 90 mmol/L (98-107); Estimated Glomerular Filt Rate > 60 mL/min (>60); Globulin 3.2 g/dL (1.7-4.1); Glucose 112 mg/dL (80-110); HEMOLYSIS 21 (0-50); Potassium 4.2 mmol/L (3.4-5.1); Sodium 126 mmol/L (137-145); Total Protein 7.4 g/dL (6.3-8.2)
== END ==
PROVIDERS: PCP Family Medicine; Referring Provider Physician Assistant; Visit Provider Physician Assistant
DX: E87.1 Hypo-osmolality and hyponatremia (principal); I10 Essential (primary) hypertension
CPT/HCPCS: 36415; 80053

== ENCOUNTER → 2023-02-10 12:48 | Outpatient (CLI) | payer MEDICARE, BC, SELFPAY ==
[2023-02-10 13:51] LABS: BUN Creatinine Ratio 9.5 (6-22); Blood Urea Nitrogen 6 mg/dL (7-17); Calcium 9.5 mg/dL (8.4-10.2); Carbon Dioxide 29 mmol/L (22-32); Chloride 93 mmol/L (98-107); Estimated Glomerular Filt Rate > 60 mL/min (>60); Glucose 106 mg/dL (80-110); HEMOLYSIS < 15 (0-50); Potassium 4.1 mmol/L (3.4-5.1); Sodium 128 mmol/L (137-145)
== END ==
PROVIDERS: PCP Family Medicine; Referring Provider Physician Assistant; Visit Provider Physician Assistant
DX: E87.1 Hypo-osmolality and hyponatremia (principal)
CPT/HCPCS: 36415; 80048

== ENCOUNTER → 2023-05-07 14:49 | Outpatient (CLI) | payer MEDICARE, BC, SELFPAY | PROVIDERS: PCP Family Medicine; Visit Provider Nurse Practitioner Family | DX: R30.0 Dysuria (principal) | CPT/HCPCS: 87086 ==

== ENCOUNTER → 2023-07-22 13:43 | Outpatient (CLI) | payer MEDICARE, BC, SELFPAY ==
[2023-07-24 15:42] LABS: Candida species Negative (Negative); Gardnerella vaginalis Positive (Negative); Trichomoas vaginalis Negative (Negative)
== END ==
PROVIDERS: PCP Family Medicine; Visit Provider Student in an Organized Health Care Education/Training Program
DX: N89.8 Other specified noninflammatory disorders of vagina (principal)
CPT/HCPCS: 87480; 87510; 87660

== ENCOUNTER → 2023-08-06 13:22 | Outpatient (CLI) | payer MEDICARE, BC, SELFPAY ==
[2023-08-07 14:43] LABS: Candida species Negative (Negative); Gardnerella vaginalis Positive (Negative); Trichomoas vaginalis Negative (Negative)
== END ==
PROVIDERS: PCP Family Medicine; Visit Provider Obstetrics & Gynecology
DX: N89.8 Other specified noninflammatory disorders of vagina (principal); N39.0 Urinary tract infection, site not specified
CPT/HCPCS: 87086; 87480; 87510; 87660

== ENCOUNTER → 2023-08-06 13:29 | Outpatient (CLI) | payer MEDICARE, BC, SELFPAY ==
--- NOTE | 2023-08-06 13:31 | DI.CT.S_ITS ---
PROCEDURE: CT CHEST WO CON INDICATIONS: f/u pulmonary nodule. TECHNIQUE: Noncontrast 2.0-2.5 mm thick sections acquired from the pulmonary apices to the posterior costophrenic angles. 7 mm thick axial MIP and 5 mm coronal and sagittal reformats were then acquired. For radiation dose reduction, the following was used: automated exposure control, adjustment of mA and/or kV according to patient size. COMPARISON: [facility], CT, CT CHEST WO CON, 06/14/2019, 10:14. FINDINGS: Image quality: Diagnostic. Lower Neck: No enlarged lymph nodes. Thyroid: No thyroid nodules which require sonographic follow up, per consensus guidelines. Axillae: No enlarged lymph nodes. Chest Wall: Unremarkable. Bones: Unremarkable. Lungs and Pleura: No pneumothorax or pleural effusions. Previously identified left lower lobe lesion has significantly increased in size now measuring 2.6 x 1.4 cm (172/3) previously measuring only approximately 2.2 x 0.9 cm. Another lesion in the left base measures 1 x 0.5 cm, not well defined on prior study. Heart: Heart size is normal. No pericardial effusion. Thoracic Vessels: The aorta and pulmonary arteries demonstrate normal size. Mediastinum and Alexia: No enlarged lymph nodes. Esophagus: No wall thickening. Small hiatal hernia. Upper Abdomen. Hypodensity in the left lobe liver anteriorly appears unchanged in size IMPRESSION: Significant increase in size of left basilar mass now measuring 2.6 cm. Additional adjacent, now larger lesion is also seen inferiorly in the left lung. Recommend biopsy if not already done so. Dictated by: Checo Ayala M.D. on 08/06/2023 at 16:48 Approved by: Checo Ayala M.D. on 08/06/2023 at 17:01
== END ==
LOC: CT 13:30
PROVIDERS: PCP Family Medicine; Referring Provider Family Medicine; Visit Provider Family Medicine
DX: E87.1 Hypo-osmolality and hyponatremia (principal); I10 Essential (primary) hypertension; K44.9 Diaphragmatic hernia without obstruction or gangrene; R91.8 Other nonspecific abnormal finding of lung field; N89.8 Other specified noninflammatory disorders of vagina; N39.0 Urinary tract infection, site not specified
CPT/HCPCS: 71250; 87086; 87480; 87510; 87660

== ENCOUNTER 2023-08-29 06:40 | Day surgery (SDC) | payer MEDICARE, BC, SELFPAY ==
[2023-08-18 12:18] VITALS: BMI 21.2
[2023-08-29] VITALS (8 sets, daily range): BP systolic 119–151; BP diastolic 55–88; PULSE 71–95; RESP 14–16; TEMP 36.1–36.9; O2SAT 94–99; BMI 21.2
[2023-08-29] MEDS: LACTATED RINGERS 1,000 ML 42 ML IV ×2 (07:11→10:06)
[2023-08-29] MEDS: ACETAMINOPHEN 325 MG TABLET 975 MG PO (07:11)
--- NOTE | 2023-08-29 07:26 | SUR.OPER ---
Lithotomy on padded OR bed, head on pillow, arms secured on padded arm boards at <90 degrees abduction. Legs secured in padded yellow fins stirrups.
[2023-08-29 07:31] LABS: Hematocrit 40.1 % (36-46); Hemoglobin 13.7 g/dL (12.0-16.0); Mean Corpuscular HGB Conc 34.1 % (30-36); Mean Corpuscular Hemoglobin 31.5 PG (26-34); Mean Corpuscular Volume 92.5 fL (80-100); Platelet Count 448 X10^3/uL (150-400); Red Blood Cell Count 4.34 X10^6/uL (4.0-5.2); Red Cell Distribution Width 12.6 % (11.6-14.8); White Blood Cell Count 9.5 X10^3/uL (4.5-11.0)
--- NOTE | 2023-08-29 07:37 | PM.PREOP ---
Pre-operative Note Interval Note History & Physical reviewed/Exam performed by Physician: Yes Changes to H&P: No H&P completed within 30 days and has changed as indicated here:: see H&P from 08/26/23
[2023-08-29 07:50] LABS: BUN Creatinine Ratio 16.7 (6-22); Blood Urea Nitrogen 11 mg/dL (7-17); Calcium 9.5 mg/dL (8.4-10.2); Carbon Dioxide 32 mmol/L (22-32); Chloride 97 mmol/L (98-107); Estimated Glomerular Filt Rate > 60 mL/min (>60); Glucose 116 mg/dL (80-110); HEMOLYSIS < 15 (0-50); Potassium 4.4 mmol/L (3.4-5.1); Sodium 133 mmol/L (137-145)
[2023-08-29] MEDS: CEFAZOLIN 2 GM/100 ML PREMIX 100 ML IV (08:08)
[2023-08-29] MEDS: BUPIVACAINE 0.25% (PF) 30 ML, EPINEPHrine 0.15 MG INJ (08:38)
[2023-08-29] MEDS: TRANEXAMIC ACID 1,000 MG VIAL 1000 MG INJ (10:05)
--- NOTE | 2023-08-29 11:42 | P.OP_ITS ---
Operative Date/Time/Diagnoses Date of procedure: 08/29/23 Time of procedure: 08:00 Pre-op diagnosis: 1. Stage II pelvic organ prolapse 2. Stress urinary incontinence Post-op diagnosis: same Procedure & Clinicians Procedure: Mid-urethral sling with tension-less vaginal tape Colpocleisis Cystoscopy Same procedure as scheduled: Yes Surgeon: Nicole Carlos [employer] Technician: Checo Mcmanus Anesthesia Type: General Operative Notes Findings: Stage II vaginal vault prolapse, some minor ulcerations noted at the posterior apical vagina. Specimen(s): none sent Prosthetic devices, grafts, tissues, transplants, or devices: TVT mesh implant Applied: catheter Estimated Blood Loss (mL): 350 Blood products transfused: none Procedure in detail: The patient was taken to the operating room and given adequate anesthesia. Compression boots were applied to the lower extremities and the patient was then placed in the dorsal lithotomy position using stirrups. Vaginal exam confirmed the in-office physical exam findings. The abdomen and perineum were prepped and draped in the usual manner and a Loving catheter was inserted into the bladder and attached to constant drainage. The patient received preoperative IV antibiotics within 30 minutes of surgery start. Given the patient's stress urinary incontinence, attention was turned to the TVT procedure. Using gentle traction on the Loving catheter to identify the bladder neck, local anesthetic was injected into the vaginal mucosa and submucosal tissues in the midline and bilaterally at the level of the mid urethra. A 1.5 cm sagittal incision was then made in the midline of the anterior vaginal wall 1 cm proximal to the external urethral meatus. The Metzenbaum scissors were then used to free the vaginal wall from the urethra and develop a small paraurethral space bilaterally. The needle tip of the TVT device attached to the introducer was inserted into the previously developed paraurethral space on the patient's right side. The needle was angulated slightly laterally and the endopelvic fascia was perforated just behind the inferior surface of the pubic symphysis. The handle of the introducer was dropped and the needle guided medially up to the abdominal wall, about 2cm from the midline. Once the tip of the needle was passed through the rectus fascia and thru the ipsilateral abdominal wall, the same procedure was completed on the left side. The Loving catheter was then removed and cystoscopy was performed to exclude unintentional bladder perforation with the TVT trocars. After bladder integrity was confirmed, the Loving catheter was replaced. The mesh was then attached to the TVT trocars, and was pulled through with a hemostat inserted between the suburethral portion of the tape and the urethra. Gentle traction on the abdominal ends of the tape relieved any excess tape material and brought the tape into contact with the instrument. With the hemostat between the urethra and the tape, the plastic sheet was removed in the usual fashion. After removal of the sheath, a 1-2 mm space between the tape and urethra was noted. The abdominal ends of the tape were then cut just below the surface of the skin. Finally, the abdominal incisions were closed with Dermabond and the vagina was closed using several interrupted sutures of 0 Vicryl. Attention was then turned to the colpocleisis procedure. The vaginal vault apex was grasped with an Allis clamp. A vaginal mucosal flap approximately 3x4cm was made along the posterior vaginal wall with the distal edge 2 cm from the perineal body and the proximal edge 2 cm from the apex. The mucosal flap was excised with care given to maintain the dissection superficially and preserve the fascia for subsequent repair. This procedure was repeated in an identical fashion along the anterior vaginal wall using the vaginal apex and bladder neck as landmarks. The proximal edges of the anterior and posterior mucosal flaps were then reapproximated using a series of interrupted delayed absorbable suture, thereby dunking the vaginal apex and creating a transverse channel. The lateral edges of the mucosal flaps were then reapproximated in a similar manner from the proximal edge to the distal edge, creating lateral channels on both sides. The distal edges were then reapproximated with delayed absorbable suture, thereby reducing the prolapse. At the end of the procedure, the patient was awakening from anesthesia when brisk vaginal bleeding was noted. On exam there appeared to be brisk bleeding from the left apex of the repair, thus she was re-prepped and redraped. Several sutures from the repair on the left side were removed, to allow for examination to find the source of bleeding. A small artery was noted to be bleeding approximately 2 cm in from the edge of the repair. This was secured with a single suture of 0 Vicryl. After several more minutes of observation, the bleeding was noted to be secured. The sutures that were cut were then replaced on the left side of the repair, and the mucosal edges were again reapproximated. Sponge count and needle counts at the end of the procedure were correct. The patient tolerated the procedure without complication and was transferred to the recovery room in stable condition. Complications: none Post-operative Condition: stable Disposition: PACU Plan for aftercare: Discharge to home once meeting criteria. Pt was unable to void prior to discharge home, thus a loving was placed, and she will have follow-up on Friday for repeat voiding trial.
[2023-08-29] MEDS: ONDANSETRON 4 MG/2 ML INJ IV (12:37)
--- NOTE | 2023-08-29 14:19 | SUR.PHASEII ---
Spoke to Dr Carlos that patient has attempted x 2 from 1130 after loving dc to urinate is unsuccessful. States to push fluids on patient for next hour. Patient being given water.
--- NOTE | 2023-08-29 16:19 | SUR.PHASEII ---
Pt attempting to urinate at this time. Dr Carlos aware. If unable to urinate will have to replace loving catheter and will send home with leg bag and dc teaching. Bladder scan showing 600 ml of urine retained.
== END 2023-08-29 17:13 | disposition home or self-care (01) ==
PROVIDERS: Student in an Organized Health Care Education/Training Program; PCP Family Medicine; Referring Provider Student in an Organized Health Care Education/Training Program; Visit Provider Student in an Organized Health Care Education/Training Program
PROC: (CPT 57120; principal; 2023-08-29 07:45)
PROC: 0TSD0ZZ Reposition Urethra, Open Approach (ICD-10-PCS; CPT 57120; 2023-08-29 07:45)
DX: N99.3 Prolapse of vaginal vault after hysterectomy (principal); N39.3 Stress incontinence (female) (male)
CPT/HCPCS: 57120; 57288; 80048; 85027; 93005; 93010; C1771; J0171; J0330; J0690; J1100; J2405; J2704; J3010

== ENCOUNTER 2023-09-01 18:33 | Emergency (ER) | payer MEDICARE, BC, SELFPAY ==
[2023-09-01] VITALS (11 sets, daily range): BP systolic 134–177; BP diastolic 65–107; PULSE 86–93; RESP 18; TEMP 36.7; O2SAT 95–99; BMI 21.7
[2023-09-01 19:05] LABS: Add Manual Diff / Slide Review NO; Basophils Absolute Auto 100 /uL (0-100); Eosinophils Absolute Auto 400 /uL (0-450); Eosinophils Percent Auto 3.6 % (2-4); Hematocrit 35.9 % (36-46); Hemoglobin 12.3 g/dL (12.0-16.0); Lymphocytes Absolute Auto 2200 /uL (1100-4500); Lymphocytes Percent Auto 19.6 % (25-40); Mean Corpuscular HGB Conc 34.4 % (30-36); Mean Corpuscular Hemoglobin 31.4 PG (26-34); Mean Corpuscular Volume 91.4 fL (80-100); Monocytes Absolute Auto 1000 /uL (0-900); Monocytes Percent Auto 9.1 % (3-14); Neutrophils Absolute Auto 7400 /uL (1500-7000); Neutrophils Percent Auto 66.7 % (50-75); Platelet Count 523 X10^3/uL (150-400); Red Blood Cell Count 3.93 X10^6/uL (4.0-5.2); Red Cell Distribution Width 12.8 % (11.6-14.8); White Blood Cell Count 11.1 X10^3/uL (4.5-11.0)
[2023-09-01 19:16] LABS: Alanine Aminotransferase 20 IU/L (<35); Albumin 4.4 g/dL (3.5-5.0); Albumin Globulin Ratio 1.6 (1.0-2.8); Alkaline Phosphatase 114 U/L (38-126); Aspartate Aminotransferase 24 IU/L (14-36); BUN Creatinine Ratio 14.3 (6-22); Bilirubin Total 0.5 mg/dL (0.2-1.3); Blood Urea Nitrogen 8 mg/dL (7-17); Calcium 9.5 mg/dL (8.4-10.2); Carbon Dioxide 29 mmol/L (22-32); Chloride 96 mmol/L (98-107); Estimated Glomerular Filt Rate > 60 mL/min (>60); Globulin 2.7 g/dL (1.7-4.1); Glucose 139 mg/dL (80-110); HEMOLYSIS 21 (0-50); Lipase 129 U/L (23-300); Potassium 4.1 mmol/L (3.4-5.1); Sodium 131 mmol/L (137-145); Total Protein 7.1 g/dL (6.3-8.2)
--- NOTE | 2023-09-01 19:49 | ED.ABDPAIN ---
HPI - Abdominal Pain General Chief Complaint: Abdominal Pain Stated Complaint: post sx pain, sent by general ophthalmologist Time Seen by Provider: 09/01/23 19:17 History of Present Illness HPI narrative: 83-year-old female presents for abdominal pain and constipation. On 08/28 patient underwent colpocleisis with urethral sling and was discharged with a Vincent catheter. On 08/31 the patient went to her postoperative appointment and the Vincent catheter was pulled. At that time the patient was able to pass her voiding trial and she was discharged home. Patient states that she has not had a bowel movement since the day before her procedure and she normally goes every single day. She called her OB GYNs office who referred her to the emergency department for evaluation. Patient reports general abdominal discomfort. She has been taking MiraLax every day without production of stool Related Data Home Medications Medication Instructions Recorded Confirmed sodium chloride 1 gram tablet 2 gm PO BID ##0 05/15/16 09/01/23 VITAMIN D (Vitamin D3) 2,000 u PO Q AM ##0 09/03/16 09/01/23 cranberry extract-multivitamin 500 mg PO 12/23/17 09/01/23 mg/5 gram oral powder packet vitamins A,C,Y-nxto-pfzjpq 4,296 1 cap PO BID 08/26/23 09/01/23 mcg-226 mg-90 mg capsule (PreserVision AREDS) Previous Rx's Medication Instructions Recorded estradiol 0.01% (0.1 mg/gram) 1 g vaginal 2XW #42.5 grams 06/25/23 vaginal cream amlodipine 5 mg tablet 5 mg PO DAILY #90 tabs 07/28/23 irbesartan 300 mg tablet 300 mg PO DAILY #90 tabs 07/28/23 lorazepam 0.5 mg tablet 0.25 mg (1/2 x 0.5 mg) PO BID PRN 07/28/23 anxiety #60 tabs acetaminophen 325 mg capsule 650 mg (2 x 325 mg) PO Q6H PRN 08/29/23 pain #30 caps ibuprofen 600 mg tablet 600 mg PO Q6H PRN pain, mild #30 08/29/23 tabs oxycodone 5 mg capsule 5 mg PO Q6H PRN pain (scale score 08/29/23 7-10) #7 caps amitriptyline 10 mg tablet 10 mg PO DAILY #30 tabs 09/01/23 Allergies Allergy/AdvReac Type Severity Reaction Status Date / Time Sulfa (Sulfonamide Allergy Mild Rash Verified 09/01/23 10:50 Antibiotics) Review of Systems Review of Systems Narrative: Negative except as noted above Patient History Medical History Vaginal vault prolapse after hysterectomy POP-Q stage 3 cystocele Abnormal CXR (~2015) Chicken pox Heavy menstrual period (~1992) Fibroids (~1992) Hiatal hernia Gastric ulcer (~10/2016) Hyponatremia HTN (hypertension) Surgical History Anesthesia History of esophagogastroduodenoscopy (EGD) (11/12/16) Status post hysterectomy (~1990) Family History Father Hypertension Stroke Mother Cancer Social History marital status: household members: spouse Smoking Status: Never smoker alcohol intake: never substance use type: does not use Smoking Status: Never smoker alcohol intake frequency: 0-2 drinks per day Substance Use Type: does not use Exam Initial Vital Signs Initial Vital Signs: Vital Signs Temperature 98.1 F 09/01/23 18:41 Pulse Rate 93 H 09/01/23 18:41 Respiratory Rate 18 09/01/23 18:41 Blood Pressure 170/80 H 09/01/23 18:41 Pulse Oximetry 97 09/01/23 18:41 Oxygen Delivery Method Room Air 09/01/23 18:41 Const: Awake, alert, no acute distress, nontoxic appearing GI: Soft,generalized tenderness to deep palpation without rebound or guarding Skin: Warm, Dry, intact, no rashes Neuro: AO x3, CN II-XII grossly intact, moves all extremities Course Orders Ordered: ED Orders 09/01/23 18:48 EKG-12 Lead Stat 09/01/23 18:55 Complete Blood Count AUTO DIFF Stat Comprehensive Metabolic Panel Stat Lipase Stat 09/01/23 19:40 Urine Culture Stat Urine Microscopic Stat 09/01/23 20:13 XR acute abdomen series Stat Discontinued Medications Glycerin (Glycerin Supp Adult 1 Supp) 1 each VT NOW ONE Stop: 09/01/23 21:04 Last Admin: 09/01/23 21:15 Dose: 1 each Documented By: NOREPINEPHRINE BITARTRATE/D5W (Levophed) 4 mg in 250 mls @ 20.922 mls/hr IV TITRATE TORI; Protocol Last Admin: 09/01/23 20:14 Dose: Not Given Documented By: PAULETTE Ondansetron HCl (Ondansetron 4 Mg Odt) 4 mg PO NOW PRN PRN Reason: Nausea And Vomiting Ondansetron HCl (Ondansetron 4 Mg/2 Ml Inj) 4 mg IV NOW PRN PRN Reason: Nausea And Vomiting Sodium Biphosphate/Sodium Phosphate (Fleets Enema) 1 each VT NOW ONE Stop: 09/01/23 21:04 Last Admin: 09/01/23 21:11 Dose: 1 each Documented By: Sodium Biphosphate/Sodium Phosphate (Fleets Enema) 1 each VT NOW ONE Stop: 09/01/23 22:32 Last Admin: 09/01/23 22:49 Dose: 1 each Documented By: Vital Signs Vital signs: Vital Signs - 8 hr 09/01/23 18:41 09/01/23 19:40 09/01/23 20:00 Temperature 98.1 F Pulse Rate 93 H 87 90 Respiratory Rate 18 Blood Pressure 170/80 H Pulse Oximetry 97 99 97 Oxygen Delivery Method Room Air 09/01/23 20:00 09/01/23 20:50 09/01/23 21:00 Temperature Pulse Rate 91 H 86 Respiratory Rate Blood Pressure 154/78 H Pulse Oximetry 95 96 Oxygen Delivery Method 09/01/23 21:01 09/01/23 21:01 09/01/23 21:15 Temperature Pulse Rate 93 H Respiratory Rate Blood Pressure 177/107 H Pulse Oximetry 98 97 Oxygen Delivery Method 09/01/23 22:17 09/01/23 22:30 09/01/23 23:00 Temperature Pulse Rate Respiratory Rate Blood Pressure 146/78 H 146/81 H 161/71 H Pulse Oximetry Oxygen Delivery Method 09/01/23 23:30 Temperature Pulse Rate Respiratory Rate Blood Pressure 134/65 Pulse Oximetry Oxygen Delivery Method MDM - Abdominal Pain Differential Diagnosis Differential diagnosis: Likely abdominal pain, constipation and small bowel obstruction Lab Data 09/01/23 18:55 09/01/23 18:55 Labs: Lab Results 09/01/23 09/01/23 Range/Units 18:55 19:40 WBC 11.1 H (4.5-11.0) X10^3/uL RBC 3.93 L (4.0-5.2) X10^6/uL Hgb 12.3 (12.0-16.0) g/dL Hct 35.9 L (36-46) % MCV 91.4 (80-100) fL MCH 31.4 (26-34) PG MCHC 34.4 (30-36) % RDW 12.8 (11.6-14.8) % Plt Count 523 H (150-400) X10^3/uL Neut % (Auto) 66.7 (50-75) % Lymph % (Auto) 19.6 L (25-40) % [place] % (Auto) 9.1 (3-14) % Eos % (Auto) 3.6 (2-4) % Baso % (Auto) 1.0 (0-2) % Neut # (Auto) 7400 H (7294-6423) /uL Lymph # (Auto) 2200 (9745-0795) /uL [place] # (Auto) 1000 H (0-900) /uL Eos # (Auto) 400 (0-450) /uL Baso # (Auto) 100 (0-100) /uL Sodium 131 L (137-145) mmol/L Potassium 4.1 (3.4-5.1) mmol/L Chloride 96 L (98-107) mmol/L Carbon Dioxide 29 (22-32) mmol/L BUN 8 (7-17) mg/dL Creatinine 0.56 (0.52-1.04) mg/dL Estimated GFR > 60 (>60) mL/min BUN/Creatinine Ratio 14.3 (6-22) Glucose 139 H (80-110) mg/dL Calcium 9.5 (8.4-10.2) mg/dL Total Bilirubin 0.5 (0.2-1.3) mg/dL AST 24 (14-36) IU/L ALT 20 (<35) IU/L Alkaline Phosphatase 114 (38-126) U/L Total Protein 7.1 (6.3-8.2) g/dL Albumin 4.4 (3.5-5.0) g/dL Globulin 2.7 (1.7-4.1) g/dL Albumin/Globulin Ratio 1.6 (1.0-2.8) Lipase 129 (23-300) U/L Urine RBC 1-5/hpf (0-5/HPF) Urine WBC 1-5/hpf (0-5/HPF) Ur Squamous Epith Cells 5-10 /hpf H (0-5/HPF) Urine Bacteria Occasional (0-1) (None) Ur Culture Indicated? Specimen cultured Vol Urine Centrifuged 10ml (spun) Point of care testing: Urine Dip Bedside Urine Glucose Negative Bedside Urine Bilirubin - Negative Bedside Urine Ketone - Negative Urine Specific [place] 1.010 Bedside Urine Occult Blood +++ Bedside Urine pH 7.5 Bedside Urine Protein - Negative Bedside Urine Urobilinogen - Negative Bedside Urine Nitrite - Negative Bedside Urine Leukocytes + 70 Esterase Imaging Data Abdominal x-ray: Radiologist's Impression: PROCEDURE: XR ACUTE ABDOMEN SERIES INDICATIONS: c/o abd pain / constipation TECHNIQUE: One view chest and two views of the abdomen were acquired. COMPARISON: [facility], CT, CT CHEST WO [facility], 08/06/2023, 13:44. FINDINGS: Surgical changes and devices: None. Chest: Left mid lung field nodular opacity. Heart size is normal. No pleural effusions. No pneumoperitoneum. Abdomen: Bowel gas pattern is normal. Moderate burden of stool throughout the colon. No suspicious calcifications. Visualized solid organ contours appear normal. Bones: No suspicious bony lesions. IMPRESSION: 1. Left midlung field nodular opacity, likely representing nodule seen on prior chest CT. Otherwise, no acute cardiopulmonary process. 2. Moderate burden of stool throughout the colon, correlate for constipation. Nonobstructive bowel gas pattern. Dictated by: Titi Jiang M.D. on 09/01/2023 at 21:09 Approved by: Titi Jiang M.D. on 09/01/2023 at 21:11 [facility] Narrative Medical decision making narrative: Postoperative constipation. Bladder scan showed over 600 mL in the bladder, patient initially declined Vincent catheter stating that if she could have a bowel movement she felt like she would be able to void. At some point during her stay in the emergency department patient was able to get up to go to the restroom and void several 100 cc, however repeat bladder scan showed even more urine retained in the bladder postvoid. Patient was clearly not completely voiding. After glycerin suppository and 2 enemas patient was able to produce a bowel movement. Vincent catheter placed with drainage of nearly 1 L of urine. Laboratory work showed normal kidney function, no significant leukocytosis. Patient was advised to keep the Vincent catheter in place as she will likely retained if she was discharged without a catheter. Patient states she will follow up with her OBGYN tomorrow for further recommendations regarding the catheter. Discharge Plan Departure Patient Disposition: Home Clinical Impression: Acute urinary retention, Constipation Instructions: DI for Constipation, DI for Urinary Retention in Women Activity Restrictions/Additional Instructions: FOLLOW UP WITH DR GALLEGOS TOMORROW. KEEP THE VINCENT IN UNTIL THEN. TAKE MIRALAX DAILY WITH GOAL OF ONE SOFT BOWEL MOVEMENT DAILY. Prescriptions: No Action sodium chloride 1 GM tablet 2 gm PO BID Qty: 0 VITAMIN D (Vitamin D3) 2,000 u PO Q AM Qty: 0 estradiol 0.01 % (0.1 mg/gram) cream 1 g vaginal 2XW Qty: 42.5 1RF amlodipine 5 mg tablet 5 mg PO DAILY Qty: 90 3RF irbesartan 300 mg tablet 300 mg PO DAILY Qty: 90 3RF lorazepam 0.5 mg tablet 0.25 mg PO BID PRN (Reason: anxiety) Qty: 60 0RF ibuprofen 600 mg tablet 600 mg PO Q6H PRN (Reason: pain, mild) Qty: 30 0RF acetaminophen 325 mg capsule 650 mg PO Q6H PRN (Reason: pain) Qty: 30 0RF oxycodone 5 mg capsule 5 mg PO Q6H PRN (Reason: pain (scale score 7-10)) Qty: 7 0RF amitriptyline 10 mg tablet 10 mg PO DAILY Qty: 30 3RF cranberry extract-multivitamin 500 mg/5 gram powder in packet PO PreserVision AREDS 4,296 mcg-226 mg-90 mg capsule 1 cap PO BID Referrals: Parag Deal MD [Primary Care Provider] - Stand Alone Forms: Patient Portal/API
[2023-09-01 20:03] LABS: Bacteria Urine Occasional (0-1); Culture Indicated Urine Specimen Cultured; RBC Urine 1-5/HPF (0-5/HPF); Squamous Epithelial Cell Urine 5-10 /HPF (0-5/HPF); Urine Volume 10mL (spun); WBC Urine 1-5/HPF (0-5/HPF)
--- NOTE | 2023-09-01 20:13 | DI.RAD.S_ITS ---
PROCEDURE: XR ACUTE ABDOMEN SERIES INDICATIONS: c/o abd pain / constipation TECHNIQUE: One view chest and two views of the abdomen were acquired. COMPARISON: [facility], CT, CT CHEST WO CON, 08/06/2023, 13:44. FINDINGS: Surgical changes and devices: None. Chest: Left mid lung field nodular opacity. Heart size is normal. No pleural effusions. No pneumoperitoneum. Abdomen: Bowel gas pattern is normal. Moderate burden of stool throughout the colon. No suspicious calcifications. Visualized solid organ contours appear normal. Bones: No suspicious bony lesions. IMPRESSION: 1. Left midlung field nodular opacity, likely representing nodule seen on prior chest CT. Otherwise, no acute cardiopulmonary process. 2. Moderate burden of stool throughout the colon, correlate for constipation. Nonobstructive bowel gas pattern. Dictated by: Titi Jiang M.D. on 09/01/2023 at 21:09 Approved by: Titi Jiang M.D. on 09/01/2023 at 21:11
[2023-09-01] MEDS: FLEETS ENEMA 1 EACH PR ×2 (21:11→22:49)
[2023-09-01] MEDS: GLYCERIN SUPP ADULT 1 SUPP 1 EACH PR (21:15)
--- NOTE | 2023-09-01 21:25 | PC.NURSE ---
Set pt up with commode and wipes at bedside. Pt acknowledges understanding to let staff know when she does get up for safety reasons.
--- NOTE | 2023-09-01 23:32 | PC.NURSE ---
21:05 pt sitting on toilet needing slight assistance with dis-impaction. After clearing rectum pt was able to defecate well. Abdominal assessment all four quadrant Bowel tones active, belly soft, none tender, no distension noted.
== END 2023-09-02 00:13 | disposition home or self-care (01) ==
PROVIDERS: Emergency Provider Emergency Medicine; PCP Family Medicine
DX: R33.8 Other retention of urine (principal); K59.00 Constipation, unspecified
CPT/HCPCS: 74022; 80053; 81003; 81015; 83690; 85025; 87086; 99284

== ENCOUNTER → 2023-09-09 11:12 | Outpatient (CLI) | payer MEDICARE, BC, SELFPAY ==
[2023-09-09 11:31] LABS: Add Manual Diff / Slide Review NO; Basophils Absolute Auto 100 /uL (0-100); Basophils Percent Auto 0.7 % (0-2); Eosinophils Absolute Auto 200 /uL (0-450); Eosinophils Percent Auto 1.2 % (2-4); Hematocrit 36.1 % (36-46); Hemoglobin 12.3 g/dL (12.0-16.0); Lymphocytes Absolute Auto 1300 /uL (1100-4500); Lymphocytes Percent Auto 10.1 % (25-40); Mean Corpuscular Hemoglobin 31.5 PG (26-34); Mean Corpuscular Volume 92.6 fL (80-100); Monocytes Absolute Auto 900 /uL (0-900); Monocytes Percent Auto 6.4 % (3-14); Neutrophils Absolute Auto 10900 /uL (1500-7000); Neutrophils Percent Auto 81.6 % (50-75); Platelet Count 537 X10^3/uL (150-400); Red Cell Distribution Width 12.9 % (11.6-14.8); White Blood Cell Count 13.3 X10^3/uL (4.5-11.0)
[2023-09-09 11:45] LABS: Alanine Aminotransferase 21 IU/L (<35); Albumin 4.2 g/dL (3.5-5.0); Albumin Globulin Ratio 1.6 (1.0-2.8); Alkaline Phosphatase 118 U/L (38-126); Aspartate Aminotransferase 22 IU/L (14-36); BUN Creatinine Ratio 11.3 (6-22); Bilirubin Total 0.5 mg/dL (0.2-1.3); Blood Urea Nitrogen 7 mg/dL (7-17); Calcium 9.6 mg/dL (8.4-10.2); Carbon Dioxide 29 mmol/L (22-32); Chloride 96 mmol/L (98-107); Estimated Glomerular Filt Rate > 60 mL/min (>60); Globulin 2.6 g/dL (1.7-4.1); Glucose 137 mg/dL (80-110); HEMOLYSIS < 15 (0-50); Potassium 5.5 mmol/L (3.4-5.1); Sodium 130 mmol/L (137-145); Total Protein 6.8 g/dL (6.3-8.2)
[2023-09-09 12:25] LABS: Appearance Urine UA CLEAR; Bilirubin Urine UA NEGATIVE (NEGATIVE); Color Urine UA YELLOW; Glucose Urine UA NEGATIVE (Negative); Ketones Urine UA NEGATIVE (NEGATIVE); Leukocyte Esterase Urine UA 1+ (NEGATIVE); Nitrite Urine UA NEGATIVE (Negative); Occult Blood Urine UA NEGATIVE (Negative); Protein Urine UA NEGATIVE (Negative); Specific Gravity Urine UA <=1.005 (1.000-1.035); Urobilinogen Urine UA 0.2 E.U./dL (0.2); pH Urine UA 6.5 (4.5-8.0)
[2023-09-09 12:27] LABS: Urine Volume 10mL (spun)
[2023-09-09 12:29] LABS: Bacteria Urine None Seen; Culture Indicated Urine Specimen Cultured; RBC Urine None Seen (0-5/HPF); Squamous Epithelial Cell Urine 0-1 /HPF (0-5/HPF); WBC Urine 1-5/HPF (0-5/HPF)
== END ==
PROVIDERS: PCP Family Medicine; Referring Provider Student in an Organized Health Care Education/Training Program; Visit Provider Student in an Organized Health Care Education/Training Program
DX: R91.1 Solitary pulmonary nodule (principal); E87.1 Hypo-osmolality and hyponatremia; I10 Essential (primary) hypertension; R30.0 Dysuria
CPT/HCPCS: 36415; 80053; 81001; 85025; 87086

== ENCOUNTER → 2024-01-28 11:06 | Outpatient (CLI) | payer MEDICARE, BC, SELFPAY | PROVIDERS: PCP Family Medicine; Visit Provider Nurse Practitioner Family | DX: R30.0 Dysuria (principal) | CPT/HCPCS: 87086 ==

== ENCOUNTER → 2025-05-02 08:57 | Outpatient (CLI) | payer MEDICARE, BC, SELFPAY | PROVIDERS: PCP Family Medicine; Visit Provider Student in an Organized Health Care Education/Training Program | DX: R32 Unspecified urinary incontinence (principal); N89.8 Other specified noninflammatory disorders of vagina | CPT/HCPCS: 81514; 87086 ==